=== PATIENT | female | born 1985 | race Two or more races ===

== ENCOUNTER 2025-04-03 09:06 | Inpatient (IN) | payer OTHER ==
[~2025-04-03] VITALS: Ht 167.6 cm; Wt 57.6 kg
[~2025-04-03 09:06] MED LIST: CLOB30CR27 TP; MUPI22OI7 TP
[2025-04-03] MEDS ORDERED: ONDANSETRON HCL/PF 4 MG/2 ML VIAL ONE (09:21)
[2025-04-03] MEDS ORDERED: ACETAMINOPHEN 650 MG/SUPP.RECT RC ONE (09:22)
[2025-04-03 09:30] LABS: RED BLOOD CELL COUNT(AUTO) 2.76 MIL/uL (4.0-5.2); RED CELL DISTRIBUTION WIDTH 16.0 % (11.5-15.0); WHITE BLOOD COUNT (AUTO) 15.0 K/uL (4.3-11.0)
[2025-04-03] MEDS: ONDANSETRON HCL/PF 4 MG/2 ML VIAL IV ONE (09:30)
[2025-04-03] MEDS: IV NS 0.9% 1,000 ML BAG IV ONE (09:30)
[2025-04-03] MEDS: ACETAMINOPHEN 650 MG/SUPP.RECT RC ONE (09:30)
[2025-04-03 09:32] LABS: PLATELET COUNT (AUTO) 121 K/uL (150-450)
[2025-04-03 09:38] LABS: CALCIUM, SERUM 8.6 mg/dL (8.5-10.1); CREATININE 0.7 mg/dL (0.6-1.3); SODIUM SERUM 139 mmol/L (136-145); UREA NITROGEN, BLOOD 14 mg/dL (7-18)
[2025-04-03] MEDS ORDERED: LEVO500T90 GT (09:38)
[2025-04-03 09:43] LABS: ASPARTATE AMINOTRANSFERASE 31 U/L (15-37); INR 1.31 (0.91-1.10); TOTAL PROTEIN, SERUM 9.1 g/dL (6.4-8.2)
[2025-04-03] MEDS: PIPERACILLIN /TAZOBACTAM 3.375 G in IV D5W 50 ML IV ONE (09:45)
[2025-04-03 09:48] LABS: LACTIC ACID 1.9 mmol/L (0.4-2.0)
[2025-04-03] MEDS: VANCOMYCIN 1 GM in IV D5W 250 ML IV ONE (10:00)
[2025-04-03 10:24] LABS: APPEARANCE,URINE CLEAR (CLEAR); BLOOD, URINE TRACE-INTA Ery/uL (NEGATIVE); LEUKOCYTE ESTERASE ,URINE NEGATIVE (NEGATIVE); NITRITE, URINE NEGATIVE (NEGATIVE); UGLUCOSE NEGATIVE (NEGATIVE)
[2025-04-03 10:25] LABS: PREGNANCY TEST URINE QUAL NEGATIVE (NEGATIVE)
[2025-04-03 10:31] LABS: ADD URINE CULTURE NO
[2025-04-03 13:01] LABS: ABG BASE EXCESS -4.4 mmol/L (-2.0-3.0); ABG OXYGEN SATURATION 99.3 % (94.0-98.0); ABG PCO2 28.0 mmHg (32.0-45.0); ABG PH 7.444 (7.350-7.450); ABG PO2 234.1 mmHg (83.0-108.0); ABG TOTAL HEMOGLOBIN 9.6 G/dL (12.0-16.0); FRACTIONATED INSPIRED OXYGEN 100.0 %; PEEP,BG 5 cm H2O; SET RATE, BG 22.0; SITE, ABG RIGHT RADIAL; VT, ABG 550 mL
[2025-04-03] MEDS ORDERED: ONDANSETRON HCL/PF 4 MG/2 ML VIAL IVP PRN (15:00)
[2025-04-03] MEDS ORDERED: DOSING PER PHARMACY-VANCOMYCIN IV XX PRN (15:00)
[2025-04-03] MEDS ORDERED: MORPHINE SULFATE INJ 4 MG/ML DISP.SYRIN IV PRN (15:00)
[2025-04-03] MEDS ORDERED: Z GUARD REMEDY 4 OZ OINT TP PRN (15:00)
[2025-04-03] MEDS: ACETYLCYSTEINE 20% SOLN 800 MG/4 ML VIAL NEB SCH (15:55)
[2025-04-03] MEDS: IPRATROPIUM NEB FS 0.5 MG/2.5 ML AMPUL.NEB NEB SCH (15:55)
[2025-04-03] MEDS: ALBUTEROL FS 2.5 MG/3 ML VIAL.NEB NEB SCH (15:55)
[2025-04-03] MEDS: IV LR 1000 ML 1,000 ML IV PRN (16:57)
[2025-04-03] MEDS: PIPERACILLIN /TAZOBACTAM 3.375 G in IV D5W 100 ML IV SCH (17:11)
[2025-04-03] MEDS: VANCOMYCIN 500 MG in IV D5W 100ml IV ONE (17:14)
[2025-04-03] MEDS ORDERED: PIPERACILLIN /TAZOBACTAM 3.375 G in IV D5W 50 ML IV SCH (18:00)
[2025-04-03 20:00] VITALS: BP 122/75; TEMP 100.2; O2SAT 95
[2025-04-03] MEDS: dexaMETHasone SOD PHOSPHATE 10 MG/ML VIAL IV ONE (20:35)
[2025-04-03] MEDS: IV LR 1000 ML 1,000 ML IV SCH (20:47)
[2025-04-03] MEDS: ACETAMINOPHEN 650 MG/SUPP.RECT RC PRN (21:00)
[2025-04-04] VITALS: BP 100/68; TEMP 97.7; O2SAT 98
[2025-04-04] MEDS: VANCOMYCIN HCL 1.25 GM in IV D5W 250 ML IV SCH (03:00)
[2025-04-04 04:00] VITALS: BP 106/70; TEMP 97.5; O2SAT 97
[2025-04-04 05:56] LABS: ABG BASE EXCESS -8.1 mmol/L (-2.0-3.0); ABG OXYGEN SATURATION 93.9 % (94.0-98.0); ABG PCO2 25.4 mmHg (32.0-45.0); ABG PH 7.401 (7.350-7.450); ABG PO2 77.1 mmHg (83.0-108.0); ABG TOTAL HEMOGLOBIN 9.3 G/dL (12.0-16.0); FRACTIONATED INSPIRED OXYGEN 40.0 %; PEEP,BG 5 cm H2O; SET RATE, BG 22.0; SITE, ABG RIGHT RADIAL; VT, ABG 550 mL
[2025-04-04 07:44] LABS: PLATELET COUNT (AUTO) 100 K/uL (150-450); RED BLOOD CELL COUNT(AUTO) 2.66 MIL/uL (4.0-5.2); RED CELL DISTRIBUTION WIDTH 16.8 % (11.5-15.0); WHITE BLOOD COUNT (AUTO) 6.9 K/uL (4.3-11.0)
[2025-04-04 08:00] VITALS: BP 109/81; TEMP 97.7; O2SAT 97
[2025-04-04 08:02] LABS: ASPARTATE AMINOTRANSFERASE 30.0 U/L (15-37); CALCIUM, SERUM 8.0 mg/dL (8.5-10.1); CREATININE 0.8 mg/dL (0.6-1.3); PHOSPHORUS 3.9 mg/dL (2.5-4.9); SODIUM SERUM 139.0 mmol/L (136-145); TOTAL PROTEIN, SERUM 8.2 g/dL (6.4-8.2); UREA NITROGEN, BLOOD 16.0 mg/dL (7-18)
[2025-04-04 08:05] LABS: IRON, SERUM 24.0 ug/dl (50-175)
[2025-04-04 08:12] LABS: LDL 57.0 mg/dL (0-99)
[2025-04-04] MEDS: PANTOPRAZOLE 40 MG VIAL IV SCH (08:19)
[2025-04-04] MEDS ORDERED: CHLO473M2 PO (09:38)
[2025-04-04] MEDS ORDERED: ACET325T53 GT (09:38)
[2025-04-04] MEDS ORDERED: FERR325T24 GT (09:38)
[2025-04-04] MEDS ORDERED: IPRA4AER INH (09:38)
[2025-04-04] MEDS ORDERED: PANT40SU2 GT (09:38)
[2025-04-04] MEDS ORDERED: MULT-594 GT (09:38)
[2025-04-04] MEDS ORDERED: TRAM50TA2 GT (09:38)
[2025-04-04] MEDS ORDERED: LACT10SO3 GT (09:38)
[2025-04-04] MEDS ORDERED: CHLO25CA10 GT (09:38)
[2025-04-04] MEDS ORDERED: NUT.237L30 GT (09:38)
[2025-04-04] MEDS ORDERED: FOLI0.4T6 GT (09:38)
[2025-04-04] MEDS ORDERED: SPIR50TA5 GT (09:38)
[2025-04-04] MEDS ORDERED: MAGN400O6 GT (09:38)
[2025-04-04] MEDS ORDERED: BISA10SU61 RC (09:38)
[2025-04-04] MEDS ORDERED: INSU100V27 SQ (09:38)
[2025-04-04] MEDS ORDERED: NA P133E RC (09:38)
[2025-04-04] MEDS ORDERED: ACET-73 GT (09:38)
[2025-04-04] MEDS ORDERED: AMIN30LI66 GT (09:38)
[2025-04-04] MEDS ORDERED: INSU100V7 SQ (09:38)
[2025-04-04] MEDS ORDERED: DOCU100C36 GT (09:38)
[2025-04-04] MEDS ORDERED: THIA100T68 GT (09:38)
[2025-04-04] MEDS ORDERED: IPRA4AER IH (09:38)
[2025-04-04] MEDS ORDERED: GLUC1KIT IM (09:38)
[2025-04-04] MEDS ORDERED: GLYC2TAB21 GT (09:38)
[2025-04-04] MEDS ORDERED: DEXTROSE 50%-WATER 50 ML DISP.SYRIN IV PRN (10:30)
[2025-04-04] MEDS ORDERED: CT SWABBABLE VALVE TRANS SET 1 EA INFUS.SET MC ONE (10:54)
[2025-04-04] MEDS ORDERED: IV NS 0.9% 0 ML IV ONE (10:54)
[2025-04-04] MEDS ORDERED: IOHEXOL-300 100 ML VIAL IV ONE (10:54)
[2025-04-04] MEDS: IV LR 500 ML IV ONE (10:56)
[2025-04-04] MEDS ORDERED: IV NS 0.9% 250 ML IV ONE (10:56)
[2025-04-04 12:00] VITALS: BP 128/77; TEMP 98.6; O2SAT 100
[2025-04-04] MEDS: BLOOD SUGAR DIAGNOSTIC 1 EACH STRIP IN SCH (12:11)
[2025-04-04 16:00] VITALS: BP 121/81; TEMP 97.3; O2SAT 100
[2025-04-04] MEDS: GLUCERNA 1.2 1,000 ML BOTTLE NG PRN (17:16)
[2025-04-04 20:00] VITALS: BP 113/78; TEMP 97.7; O2SAT 100
[2025-04-04] MEDS: VANCOMYCIN 1 GM in IV D5W 250ml IV SCH (20:31)
[2025-04-05] VITALS: BP 111/62; TEMP 97.5; O2SAT 100
[2025-04-05] MEDS: INSULIN REGULAR, HUMAN 100 UNIT/ML 3 ML VIAL SQ PRN (00:28)
[2025-04-05 04:00] VITALS: BP 106/61; TEMP 98.6; O2SAT 100
[2025-04-05 07:17] LABS: CALCIUM, SERUM 8.4 mg/dL (8.5-10.1); CREATININE 0.7 mg/dL (0.6-1.3); SODIUM SERUM 142.0 mmol/L (136-145); UREA NITROGEN, BLOOD 20.0 mg/dL (7-18)
[2025-04-05 08:00] VITALS: BP 113/93; TEMP 97.7; O2SAT 97
[2025-04-05] MEDS: THERAHONEY GEL 1.5 OZ TUBE TP SCH (09:41)
[2025-04-05 12:00] VITALS: BP 110/70; TEMP 98.2; O2SAT 100
[2025-04-05 13:40] LABS: PLATELET COUNT (AUTO) 120 K/uL (150-450); RED BLOOD CELL COUNT(AUTO) 2.18 MIL/uL (4.0-5.2); RED CELL DISTRIBUTION WIDTH 16.6 % (11.5-15.0); WHITE BLOOD COUNT (AUTO) 8.5 K/uL (4.3-11.0)
[2025-04-05 16:00] VITALS: BP 118/78; TEMP 98; O2SAT 100
[2025-04-05] MEDS: GLUCERNA 1.2 1,000 ML BOTTLE GT PRN (16:46)
[2025-04-05 20:00] VITALS: BP 128/78; TEMP 97.9; O2SAT 100
[2025-04-06] VITALS: BP 111/62; TEMP 98; O2SAT 100
[2025-04-06 06:00] VITALS: BP 118/65; TEMP 98; O2SAT 100
[2025-04-06 07:01] LABS: PLATELET COUNT (AUTO) 123 K/uL (150-450); RED BLOOD CELL COUNT(AUTO) 2.53 MIL/uL (4.0-5.2); RED CELL DISTRIBUTION WIDTH 16.0 % (11.5-15.0); WHITE BLOOD COUNT (AUTO) 9.4 K/uL (4.3-11.0)
[2025-04-06 07:07] LABS: CALCIUM, SERUM 8.1 mg/dL (8.5-10.1); CREATININE 0.6 mg/dL (0.6-1.3); PHOSPHORUS 3.6 mg/dL (2.5-4.9); SODIUM SERUM 143.0 mmol/L (136-145); UREA NITROGEN, BLOOD 16.0 mg/dL (7-18)
[2025-04-06 07:30] VITALS: BP 135/77; TEMP 98.4; O2SAT 98
[2025-04-06 08:00] VITALS: BP 135/77; TEMP 98.4; O2SAT 100
[2025-04-06] MEDS: PANTOPRAZOLE 40 MG/PACK PACK GT SCH (08:37)
[2025-04-06] MEDS: MAGNESIUM OXIDE 400 MG TABLET GT ONE (10:06)
[2025-04-06 12:00] VITALS: BP 129/72; TEMP 97.7; O2SAT 100; O2SAT 96
[2025-04-06] MEDS ORDERED: PIPE3.379 IV (12:18)
== END 2025-04-06 16:58 | DRG 720 ==
LOC: ER 09:23 → TELE-TD 14:14 → TELE1 04-04 13:16
PROVIDERS: ADMIT Nurse Practitioner Acute Care; ATTEND Nurse Practitioner Family
PROC: 5A1945Z Respiratory Ventilation, 24-96 Consecutive Hours (ICD-10-PCS; principal; 2025-04-03)
DX: A41.9 Sepsis, unspecified organism (principal); Z99.11 Dependence on respirator [ventilator] status; J96.20 Acute and chronic respiratory failure, unspecified whether with hypoxia or hypercapnia; T17.990A Other foreign object in respiratory tract, part unspecified in causing asphyxiation, initial encounter; J15.69 Pneumonia due to other Gram-negative bacteria; I62.03 Nontraumatic chronic subdural hemorrhage; K76.6 Portal hypertension; I21.A1 Myocardial infarction type 2; D69.6 Thrombocytopenia, unspecified; Z93.0 Tracheostomy status; J15.9 Unspecified bacterial pneumonia; K70.31 Alcoholic cirrhosis of liver with ascites; Z93.1 Gastrostomy status; R13.10 Dysphagia, unspecified; Z91.419 Personal history of unspecified adult abuse; W44.F9XA Other object of natural or organic material, entering into or through a natural orifice, initial encounter; Y92.129 Unspecified place in nursing home as the place of occurrence of the external cause; Y95 Nosocomial condition; N18.2 Chronic kidney disease, stage 2 (mild); E11.22 Type 2 diabetes mellitus with diabetic chronic kidney disease; E11.65 Type 2 diabetes mellitus with hyperglycemia; I12.9 Hypertensive chronic kidney disease with stage 1 through stage 4 chronic kidney disease, or unspecified chronic kidney disease; D63.8 Anemia in other chronic diseases classified elsewhere; D53.9 Nutritional anemia, unspecified; J98.11 Atelectasis; K51.90 Ulcerative colitis, unspecified, without complications; Z86.14 Personal history of Methicillin resistant Staphylococcus aureus infection; N28.1 Cyst of kidney, acquired; F10.11 Alcohol abuse, in remission; Z98.890 Other specified postprocedural states; Z87.820 Personal history of traumatic brain injury; G96.00 Cerebrospinal fluid leak, unspecified
CPT/HCPCS: 31720; 36415; 36600; 70450-TC; 70460-TC; 71045-TC; 71250-TC; 80048-TC; 80053-TC; 80061-TC; 80076-TC; 80202-TC; 81001; 82803-TC; 82962-TC; 83540-TC; 83605-TC; 83735-TC; 84100-TC; 84443-TC; 84484-TC; 84703-TC; 85025-TC; 85730-TC; 87040-TC; 87070-TC; 87081-TC; 87086-TC; 87205-TC; 93307-TC; 94002-TC; 94003-TC; 94760-TC; 94762-TC; 94799-TC; 99082-TC; A4223; G0378; J1100; J1815; J2405; J2470; J2543; J3373; J3490; J7030; J7040; J7050; J7060; J7120; Q9967

== ENCOUNTER 2025-04-11 08:50 | Inpatient (IN) | payer OTHER ==
[~2025-04-11] VITALS: Ht 170.2 cm; Wt 59.0 kg
[~2025-04-11 08:50] MED LIST changes: +ACET-73 GT; +ACET325T53 GT; +AMIN30LI66 GT; +BISA10SU61 RC; +CHLO25CA10 GT; +CHLO473M2 PO; +DOCU100C36 GT; +FERR325T24 GT; +FOLI0.4T6 GT; +GLUC1KIT IM; +GLYC2TAB21 GT; +INSU100V27 SQ; +INSU100V7 SQ; +IPRA4AER IH; +IPRA4AER INH; +LACT10SO3 GT; +MAGN400O6 GT; +MULT-594 GT; +NA P133E RC; +NUT.237L30 GT; +PANT40SU2 GT; +PIPE3.379 IV; +SPIR50TA5 GT; +THIA100T68 GT; +TRAM50TA2 GT
[2025-04-11] MEDS: IV NS 0.9% 1,000 ML BAG IV ONE (09:07)
[2025-04-11 09:09] LABS: PLATELET COUNT (AUTO) 159 K/uL (150-450); RED BLOOD CELL COUNT(AUTO) 3.26 MIL/uL (4.0-5.2); RED CELL DISTRIBUTION WIDTH 16.2 % (11.5-15.0); WHITE BLOOD COUNT (AUTO) 21.2 K/uL (4.3-11.0)
[2025-04-11] MEDS ORDERED: COLL30OI TP (09:18)
[2025-04-11] MEDS ORDERED: ASCO500T21 GT (09:18)
[2025-04-11] MEDS ORDERED: ZINC50TA69 GT (09:18)
[2025-04-11 09:20] LABS: INR 1.25 (0.91-1.10)
[2025-04-11 09:23] LABS: CALCIUM, SERUM 9.3 mg/dL (8.5-10.1); CREATININE 0.7 mg/dL (0.6-1.3); SODIUM SERUM 137 mmol/L (136-145); UREA NITROGEN, BLOOD 12 mg/dL (7-18)
[2025-04-11 09:27] LABS: LACTIC ACID 2.1 mmol/L (0.4-2.0)
[2025-04-11 09:31] LABS: ASPARTATE AMINOTRANSFERASE 39 U/L (15-37); TOTAL PROTEIN, SERUM 9.5 g/dL (6.4-8.2)
[2025-04-11] MEDS: PIPERACILLIN /TAZOBACTAM 3.375 G in IV D5W 50 ML IV ONE (09:38)
[2025-04-11] MEDS: VANCOMYCIN 1 GM in IV D5W 250 ML IV ONE (10:20)
[2025-04-11] MEDS ORDERED: IPRATROPIUM NEB FS 0.5 MG/2.5 ML AMPUL.NEB ONE (10:24)
[2025-04-11 11:18] LABS: ABG BASE EXCESS -5.9 mmol/L (-2.0-3.0); ABG OXYGEN SATURATION 98.9 % (94.0-98.0); ABG PCO2 28.0 mmHg (32.0-45.0); ABG PH 7.416 (7.350-7.450); ABG PO2 171.3 mmHg (83.0-108.0); ABG TOTAL HEMOGLOBIN 10.1 G/dL (12.0-16.0); FRACTIONATED INSPIRED OXYGEN 100.0 %; PEEP,BG 5 cm H2O; SET RATE, BG 22.0; SITE, ABG RIGHT RADIAL; VT, ABG 550 mL
[2025-04-11] MEDS ORDERED: MAGNESIUM HYDROXIDE 30 ML UDC PO PRN (11:30)
[2025-04-11] MEDS ORDERED: MAG HYDROX/AL HYDROX/SIMETH 30 ML UDC PO PRN (11:30)
[2025-04-11] MEDS: IPRATROPIUM NEB FS 0.5 MG/2.5 ML AMPUL.NEB NEB SCH (11:30)
[2025-04-11] MEDS ORDERED: ONDANSETRON HCL/PF 4 MG/2 ML VIAL IVP PRN (11:30)
[2025-04-11] MEDS ORDERED: DOSING PER PHARMACY-VANCOMYCIN IV XX PRN (11:30)
[2025-04-11] MEDS ORDERED: Z GUARD REMEDY 4 OZ OINT TP PRN (11:30)
[2025-04-11] MEDS ORDERED: DEXTROSE 50%-WATER 50 ML DISP.SYRIN IV PRN (13:00)
[2025-04-11] MEDS: PIPERACILLIN /TAZOBACTAM 3.375 G in IV D5W 50 ML IV SCH (14:30)
[2025-04-11 16:00] VITALS: BP 99/61; TEMP 98.7; O2SAT 100
[2025-04-11] MEDS: LACTULOSE 10 G/15 ML UDC (PYXIS) GT SCH (16:06)
[2025-04-11] MEDS: GLYCOPYRROLATE 1 MG TABLET GT SCH (16:07)
[2025-04-11] MEDS: CHLORHEXIDINE GLUCONATE 15 ML UDC MM SCH (16:07)
[2025-04-11] MEDS: VANCOMYCIN 1 GM in IV D5W 250ml IV SCH (17:29)
[2025-04-11] MEDS: FERROUS SULFATE (325 MG) 325 MG/TAB TABLET GT SCH (17:29)
[2025-04-11] MEDS: BLOOD SUGAR DIAGNOSTIC 1 EACH STRIP IN SCH (17:56)
[2025-04-11 20:00] VITALS: BP 106/63; TEMP 100.4; O2SAT 100
[2025-04-11] MEDS: ACETAMINOPHEN 325 MG TABLET PO PRN (20:16)
[2025-04-11] MEDS: NEPRO 1,000 ML BOTTLE GT PRN (20:49)
[2025-04-11 21:30] VITALS: TEMP 99.1
[2025-04-12] VITALS (8 sets, daily range): BP systolic 94–107; BP diastolic 52–69; TEMP 97.6–98.3; O2SAT 99–100
[2025-04-12 06:32] LABS: PLATELET COUNT (AUTO) 125 K/uL (150-450); RED BLOOD CELL COUNT(AUTO) 2.97 MIL/uL (4.0-5.2); RED CELL DISTRIBUTION WIDTH 16.8 % (11.5-15.0); WHITE BLOOD COUNT (AUTO) 9.6 K/uL (4.3-11.0)
[2025-04-12 06:43] LABS: SERUM AMMONIA 55.0 umol/L (11-32)
[2025-04-12 07:19] LABS: CREATININE 0.6 mg/dL (0.6-1.3); UREA NITROGEN, BLOOD 14.0 mg/dL (7-18)
[2025-04-12 07:20] LABS: CALCIUM, SERUM 8.4 mg/dL (8.5-10.1); PHOSPHORUS 3.9 mg/dL (2.5-4.9); SODIUM SERUM 138.0 mmol/L (136-145)
[2025-04-12] MEDS: ASCORBIC ACID 500 MG TABLET GT SCH (08:33)
[2025-04-12] MEDS: SPIRONOLACTONE 25 MG TABLET GT SCH (08:33)
[2025-04-12] MEDS: ZINC SULFATE 220 MG CAPSULE GT SCH (08:33)
[2025-04-12] MEDS: MULTIVITAMINS,THERAGRAN 1 UDTAB TABLET GT SCH (08:33)
[2025-04-12] MEDS: DOCUSATE SODIUM LIQ 100 MG/10 ML UDC GT SCH (08:34)
[2025-04-12] MEDS: PROSOURCE / PROSTAT (PYXIS) 30 ML UDC GT SCH (08:35)
[2025-04-12] MEDS: THERAHONEY GEL 1.5 OZ TUBE TP SCH (08:36)
[2025-04-12] MEDS ORDERED: DOCUSATE SODIUM 100 MG CAPSULE PO SCH (09:00)
[2025-04-12] MEDS ORDERED: DOSING PER PHARMACY-CEFEPIME IVPB XX PRN (12:00)
[2025-04-12] MEDS: CEFEPIME 2 GM in IV D5W 100 ML IV SCH (12:25)
[2025-04-12] MEDS: METRONIDAZOLE 500 MG TABLET GT SCH (12:28)
[2025-04-12 15:15] LABS: APPEARANCE,URINE CLEAR (CLEAR); BLOOD, URINE NEGATIVE Ery/uL (NEGATIVE); LEUKOCYTE ESTERASE ,URINE NEGATIVE (NEGATIVE); NITRITE, URINE NEGATIVE (NEGATIVE); UGLUCOSE NEGATIVE (NEGATIVE)
[2025-04-12 15:17] LABS: PREGNANCY TEST URINE QUAL NEGATIVE (NEGATIVE)
[2025-04-12] MEDS: ACETYLCYSTEINE 10% SOLN 400 MG/4 ML VIAL NEB SCH (15:30)
[2025-04-12] MEDS: VANCOMYCIN 1 GM in IV D5W 250ml IV SCH (23:50)
[2025-04-13] VITALS: BP 101/47; TEMP 98; O2SAT 100
[2025-04-13 04:00] VITALS: BP 113/61; TEMP 97.9; O2SAT 100
[2025-04-13 06:13] LABS: PLATELET COUNT (AUTO) 133 K/uL (150-450); RED BLOOD CELL COUNT(AUTO) 2.56 MIL/uL (4.0-5.2); RED CELL DISTRIBUTION WIDTH 15.7 % (11.5-15.0); WHITE BLOOD COUNT (AUTO) 6.4 K/uL (4.3-11.0)
[2025-04-13 06:22] LABS: CALCIUM, SERUM 9.0 mg/dL (8.5-10.1); CREATININE 0.7 mg/dL (0.6-1.3); PHOSPHORUS 4.0 mg/dL (2.5-4.9); SODIUM SERUM 139.0 mmol/L (136-145); UREA NITROGEN, BLOOD 16.0 mg/dL (7-18)
[2025-04-13 08:10] VITALS: BP 101/57; TEMP 97.5; O2SAT 100
[2025-04-13] MEDS: MAGNESIUM OXIDE 400 MG TABLET PO ONE (10:00)
[2025-04-13] MEDS: POTASSIUM CHLORIDE 20 MEQ POWDER PACKET NG SCH (10:00)
[2025-04-13 12:00] VITALS: BP 115/60; TEMP 97.5; O2SAT 100
[2025-04-13] MEDS: INSULIN REGULAR, HUMAN 100 UNIT/ML 3 ML VIAL SQ PRN (12:08)
[2025-04-13 16:38] VITALS: BP 108/66; TEMP 99.1; O2SAT 100
[2025-04-13 20:00] VITALS: BP 126/72; TEMP 98.2; O2SAT 100
[2025-04-13] MEDS: GLUCERNA 1.2 1,000 ML BOTTLE PEG PRN (20:52)
[2025-04-14] VITALS: BP 108/66; TEMP 97.9; O2SAT 100
[2025-04-14 04:00] VITALS: BP 105/61; TEMP 97.7; O2SAT 100
[2025-04-14 08:00] VITALS: BP 93/63; TEMP 98.6; O2SAT 100
[2025-04-14 08:14] LABS: PLATELET COUNT (AUTO) 140 K/uL (150-450); RED BLOOD CELL COUNT(AUTO) 2.92 MIL/uL (4.0-5.2); RED CELL DISTRIBUTION WIDTH 15.9 % (11.5-15.0); WHITE BLOOD COUNT (AUTO) 5.5 K/uL (4.3-11.0)
[2025-04-14 08:15] LABS: CALCIUM, SERUM 9.5 mg/dL (8.5-10.1); CREATININE 0.6 mg/dL (0.6-1.3); PHOSPHORUS 4.5 mg/dL (2.5-4.9); SODIUM SERUM 140.0 mmol/L (136-145); UREA NITROGEN, BLOOD 13.0 mg/dL (7-18)
[2025-04-14] MEDS: MAGNESIUM OXIDE 400 MG TABLET NG ONE (09:45)
[2025-04-14] MEDS ORDERED: METR500T GT (10:03)
[2025-04-14] MEDS ORDERED: CEFE2FRO IV (10:03)
[2025-04-14 12:00] VITALS: BP 91/55; TEMP 97.6; O2SAT 100
== END 2025-04-14 15:01 | DRG 720 ==
LOC: ER 08:56 → INTOOBSV 10:54 → OBSVTOIN 10:54 → TELE-TD 10:54 → TELE1 04-12 09:32
PROVIDERS: ATTEND Nurse Practitioner Family
PROC: 5A1945Z Respiratory Ventilation, 24-96 Consecutive Hours (ICD-10-PCS; principal; 2025-04-11)
PROC: 0JB70ZZ Excision of Back Subcutaneous Tissue and Fascia, Open Approach (ICD-10-PCS; 2025-04-14)
DX: A41.9 Sepsis, unspecified organism (principal); J95.851 Ventilator associated pneumonia; Z99.11 Dependence on respirator [ventilator] status; L89.153 Pressure ulcer of sacral region, stage 3; J15.69 Pneumonia due to other Gram-negative bacteria; Z93.0 Tracheostomy status; E87.20 Acidosis, unspecified; K74.60 Unspecified cirrhosis of liver; K76.6 Portal hypertension; R13.10 Dysphagia, unspecified; J96.10 Chronic respiratory failure, unspecified whether with hypoxia or hypercapnia; B96.89 Other specified bacterial agents as the cause of diseases classified elsewhere; I12.9 Hypertensive chronic kidney disease with stage 1 through stage 4 chronic kidney disease, or unspecified chronic kidney disease; K51.90 Ulcerative colitis, unspecified, without complications; Y84.8 Other medical procedures as the cause of abnormal reaction of the patient, or of later complication, without mention of misadventure at the time of the procedure; Y92.129 Unspecified place in nursing home as the place of occurrence of the external cause; E11.22 Type 2 diabetes mellitus with diabetic chronic kidney disease; Z20.822 Contact with and (suspected) exposure to COVID-19; N18.9 Chronic kidney disease, unspecified; Z87.820 Personal history of traumatic brain injury; Y95 Nosocomial condition; Z93.1 Gastrostomy status; D63.8 Anemia in other chronic diseases classified elsewhere; Z79.4 Long term (current) use of insulin; Z79.899 Other long term (current) drug therapy; J98.11 Atelectasis; F10.91 Alcohol use, unspecified, in remission; Z98.890 Other specified postprocedural states
CPT/HCPCS: 31720; 36415; 36600; 71045-TC; 71250-TC; 76604-TC; 80048-TC; 80076-TC; 80202-TC; 82140-TC; 82803-TC; 82962-TC; 83605-TC; 83735-TC; 84100-TC; 84703-TC; 85025-TC; 85730-TC; 87040-TC; 87081-TC; 87086-TC; 87186-TC; 94002-TC; 94003-TC; 94760-TC; 94762-TC; 94799-TC; A4223; G0378; J0692; J1815; J2543; J3373; J7030; J7040; J7050; J7060

== ENCOUNTER 2025-04-25 11:54 | Emergency (ER) | payer OTHER ==
[~2025-04-25] VITALS: Ht 167.6 cm; Wt 51.3 kg
[~2025-04-25 11:54] MED LIST changes: +ASCO500T21 GT; -BISA10SU61 RC; +CEFE2FRO IV; -CLOB30CR27 TP; +COLL30OI TP; -FOLI0.4T6 GT; -GLUC1KIT IM; +METR500T GT; -MUPI22OI7 TP; -PIPE3.379 IV; -THIA100T68 GT; +ZINC50TA69 GT
[2025-04-25 14:49] VITALS: TEMP 98.1
[2025-04-25 15:36] VITALS: BP 106/69; O2SAT 100
== END 2025-04-25 15:36 ==
LOC: ER 12:01
DX: S09.90XA Unspecified injury of head, initial encounter (principal); I13.10 Hypertensive heart and chronic kidney disease without heart failure, with stage 1 through stage 4 chronic kidney disease, or unspecified chronic kidney disease; J96.11 Chronic respiratory failure with hypoxia; N18.9 Chronic kidney disease, unspecified; Z98.890 Other specified postprocedural states; Z93.0 Tracheostomy status; Z79.899 Other long term (current) drug therapy; W06.XXXA Fall from bed, initial encounter; Y93.89 Activity, other specified; Y92.89 Other specified places as the place of occurrence of the external cause; Y99.8 Other external cause status
CPT/HCPCS: 70450-TC; 72125-TC; 87081-TC

== ENCOUNTER 2025-05-03 22:22 | Inpatient (IN) | payer OTHER ==
[~2025-05-03] VITALS: Ht 160 cm; Wt 48.5 kg
[2025-05-03] MEDS ORDERED: CT SWABBABLE VALVE TRANS SET 1 EA INFUS.SET MC ONE (22:58)
[2025-05-03] MEDS ORDERED: IOHEXOL-350 100 ML VIAL IV ONE (22:58)
[2025-05-03] MEDS ORDERED: IV NS 0.9% 250 ML IV ONE (22:59)
[2025-05-03] MEDS: IV LR 1000 ML 1,000 ML BAG IV ONE (23:05)
[2025-05-03 23:13] LABS: PLATELET COUNT (AUTO) 108 K/uL (150-450); RED BLOOD CELL COUNT(AUTO) 2.82 MIL/uL (4.0-5.2); RED CELL DISTRIBUTION WIDTH 15.9 % (11.5-15.0); WHITE BLOOD COUNT (AUTO) 10.8 K/uL (4.3-11.0)
[2025-05-03 23:21] LABS: CALCIUM, SERUM 10.6 mg/dL (8.5-10.1); CREATININE 0.6 mg/dL (0.6-1.3); SODIUM SERUM 141.0 mmol/L (136-145); UREA NITROGEN, BLOOD 21.0 mg/dL (7-18)
[2025-05-03 23:28] LABS: ASPARTATE AMINOTRANSFERASE 37.0 U/L (15-37); TOTAL PROTEIN, SERUM 8.3 g/dL (6.4-8.2)
[2025-05-03 23:36] LABS: INR 1.24 (0.91-1.10)
[2025-05-04] MEDS ORDERED: ONDANSETRON HCL/PF 4 MG/2 ML VIAL IVP PRN (02:00)
[2025-05-04] MEDS ORDERED: MAGNESIUM HYDROXIDE 30 ML UDC PO PRN (02:00)
[2025-05-04] MEDS ORDERED: DEXTROSE 50%-WATER 50 ML DISP.SYRIN IV PRN (02:00)
[2025-05-04] MEDS ORDERED: Z GUARD REMEDY 4 OZ OINT TP PRN (02:00)
[2025-05-04] MEDS ORDERED: MAG HYDROX/AL HYDROX/SIMETH 30 ML UDC PO PRN (02:00)
[2025-05-04] MEDS: IV NS 0.9% 1,000 ML IV PRN (03:19)
[2025-05-04 04:00] VITALS: BP 114/85; TEMP 97.3; O2SAT 100
[2025-05-04 06:47] LABS: PLATELET COUNT (AUTO) 97 K/uL (150-450); RED BLOOD CELL COUNT(AUTO) 2.75 MIL/uL (4.0-5.2); RED CELL DISTRIBUTION WIDTH 15.6 % (11.5-15.0); WHITE BLOOD COUNT (AUTO) 6.7 K/uL (4.3-11.0)
[2025-05-04 06:55] LABS: CALCIUM, SERUM 10.7 mg/dL (8.5-10.1); CREATININE 0.5 mg/dL (0.6-1.3); PHOSPHORUS 4.3 mg/dL (2.5-4.9); SODIUM SERUM 141.0 mmol/L (136-145); UREA NITROGEN, BLOOD 18.0 mg/dL (7-18)
[2025-05-04] MEDS: PANTOPRAZOLE 40 MG TABLET.DR PO SCH (07:30)
[2025-05-04] MEDS: BLOOD SUGAR DIAGNOSTIC 1 EACH STRIP IN SCH (07:41)
[2025-05-04] MEDS: INSULIN REGULAR, HUMAN 100 UNIT/ML 3 ML VIAL SQ PRN (07:42)
[2025-05-04 08:00] VITALS: BP 104/70; TEMP 98.1; O2SAT 100
[2025-05-04] MEDS: THERAHONEY GEL 1.5 OZ TUBE TP SCH (09:30)
[2025-05-04] MEDS: MAGNESIUM OXIDE 400 MG TABLET NG ONE (10:07)
[2025-05-04] MEDS ORDERED: SPIR25TA6 PO (10:32)
[2025-05-04] MEDS ORDERED: BISA10SU61 RC (10:32)
[2025-05-04] MEDS ORDERED: DOCU100T2 GT (10:32)
[2025-05-04] MEDS ORDERED: [UNRECOGNIZED DRUG - CODE] SQ (10:32)
[2025-05-04] MEDS ORDERED: IPRA4AER IH (10:32)
[2025-05-04] MEDS ORDERED: CHLO473M2 MM (10:32)
[2025-05-04] MEDS ORDERED: LORA-259 GT (10:32)
[2025-05-04] MEDS ORDERED: MAGN400T26 GT (10:32)
[2025-05-04 11:03] LABS: EOSINOPHILS % (MANUAL) 1 % (0-4); LYMPHOCYTES % (MANUAL) 9 % (16-48); MONOCYTES % (MANUAL) 6 % (0-11.0); NEUTROPHILS % (MANUAL) 84 (42-76); PLATELET ESTIMATE DECREASED
[2025-05-04 12:00] VITALS: BP 108/71; TEMP 98.4; O2SAT 100
[2025-05-04] MEDS: GLUCERNA 1.2 1,000 ML BOTTLE NG SCH (12:54)
[2025-05-04] MEDS ORDERED: BISACODYL SUPP (10 MG) 10 MG/SUPP.RECT SUPP.RECT RC PRN (14:00)
[2025-05-04] MEDS ORDERED: TRAMADOL HCL 50 MG TABLET GT PRN (14:00)
[2025-05-04] MEDS ORDERED: MAGNESIUM HYDROXIDE 30 ML UDC GT PRN (14:00)
[2025-05-04] MEDS ORDERED: ALBUTEROL FS 2.5 MG/3 ML VIAL.NEB NEB PRN (14:00)
[2025-05-04] MEDS ORDERED: IPRATROPIUM NEB FS 0.5 MG/2.5 ML AMPUL.NEB NEB PRN (14:00)
[2025-05-04] MEDS ORDERED: NA PHOS,M-B/NA PHOS,DI-BA 1 EA ENEMA RC PRN (14:00)
[2025-05-04 16:00] VITALS: BP 110/67; TEMP 98.8; O2SAT 100
[2025-05-04] MEDS: CHLORHEXIDINE GLUCONATE 15 ML UDC MM SCH (16:15)
[2025-05-04] MEDS: LACTULOSE 10 G/15 ML UDC (PYXIS) GT SCH (16:15)
[2025-05-04] MEDS: GLYCOPYRROLATE 1 MG TABLET GT SCH (16:16)
[2025-05-04] MEDS: ALBUTEROL FS 2.5 MG/3 ML VIAL.NEB NEB SCH (19:51)
[2025-05-04] MEDS: IPRATROPIUM NEB FS 0.5 MG/2.5 ML AMPUL.NEB NEB SCH (19:52)
[2025-05-04 20:00] VITALS: BP 112/68; TEMP 98.2; O2SAT 99
[2025-05-04] MEDS: LORAZEPAM 1 MG TABLET GT SCH (21:10)
[2025-05-04] MEDS: INSULIN GLARGINE, 100 UNIT/ML CARTRIDGE SQ SCH (21:48)
[2025-05-05] VITALS: BP 106/71; TEMP 97.7; O2SAT 98
[2025-05-05 04:00] VITALS: BP 113/72; TEMP 98; O2SAT 100
[2025-05-05 06:16] LABS: PLATELET COUNT (AUTO) 95 K/uL (150-450); RED BLOOD CELL COUNT(AUTO) 2.56 MIL/uL (4.0-5.2); RED CELL DISTRIBUTION WIDTH 15.8 % (11.5-15.0); WHITE BLOOD COUNT (AUTO) 5.7 K/uL (4.3-11.0)
[2025-05-05 06:28] LABS: CALCIUM, SERUM 10.2 mg/dL (8.5-10.1); CREATININE 0.5 mg/dL (0.6-1.3); PHOSPHORUS 4.4 mg/dL (2.5-4.9); SODIUM SERUM 144.0 mmol/L (136-145); UREA NITROGEN, BLOOD 16.0 mg/dL (7-18)
[2025-05-05 07:29] LABS: EOSINOPHILS % (MANUAL) 4 % (0-4); LYMPHOCYTES % (MANUAL) 17 % (16-48); MONOCYTES % (MANUAL) 11 % (0-11.0); NEUTROPHILS % (MANUAL) 68 (42-76); PLATELET ESTIMATE DECREASED
[2025-05-05 08:00] VITALS: BP_SYST 107; BP_SYST 129; BP_DIAS 56; BP_DIAS 69; TEMP 98.2; O2SAT 99
[2025-05-05] MEDS: PROSOURCE / PROSTAT (PYXIS) 30 ML UDC GT SCH (09:00)
[2025-05-05] MEDS: SPIRONOLACTONE 25 MG TABLET GT SCH (09:00)
[2025-05-05] MEDS: PANTOPRAZOLE 40 MG/PACK PACK GT SCH (09:00)
[2025-05-05] MEDS ORDERED: PANTOPRAZOLE 40 MG/PACK PACK GT SCH (09:00)
[2025-05-05] MEDS: DOCUSATE SODIUM LIQ 100 MG/10 ML UDC GT SCH (09:00)
[2025-05-05] MEDS: ZINC SULFATE 220 MG CAPSULE GT SCH (09:00)
[2025-05-05] MEDS: MAGNESIUM OXIDE 400 MG TABLET GT SCH (09:00)
[2025-05-05] MEDS: ASCORBIC ACID 500 MG TABLET GT SCH (09:00)
[2025-05-05] MEDS ORDERED: COLLAGENASE 30 GM TUBE TP SCH (09:00)
[2025-05-05] MEDS: FERROUS SULFATE (325 MG) 325 MG/TAB TABLET GT SCH (09:00)
[2025-05-05] MEDS: MULTIVITAMINS,THERAGRAN 1 UDTAB TABLET GT SCH (09:00)
[2025-05-05] MEDS: MAGNESIUM OXIDE 400 MG TABLET PO ONE (11:00)
[2025-05-05 12:00] VITALS: BP_SYST 125; BP_SYST 129; BP_DIAS 56; BP_DIAS 82; TEMP 98.1; TEMP 98.2; O2SAT 99
[2025-05-05] MEDS: GLUCERNA 1.2 1,000 ML BOTTLE PEG SCH (15:52)
[2025-05-05 16:00] VITALS: BP 104/67; TEMP 98.8; O2SAT 99
[2025-05-05 20:00] VITALS: BP 110/63; TEMP 98.1; O2SAT 100
[2025-05-06] VITALS: BP 114/64; TEMP 99; O2SAT 100
[2025-05-06 04:00] VITALS: BP 117/67; TEMP 98.4; O2SAT 100
[2025-05-06 06:19] LABS: CALCIUM, SERUM 9.8 mg/dL (8.5-10.1); CREATININE 0.5 mg/dL (0.6-1.3); SODIUM SERUM 142.0 mmol/L (136-145); UREA NITROGEN, BLOOD 12.0 mg/dL (7-18)
[2025-05-06 06:25] LABS: PLATELET COUNT (AUTO) 93 K/uL (150-450); RED BLOOD CELL COUNT(AUTO) 2.42 MIL/uL (4.0-5.2); RED CELL DISTRIBUTION WIDTH 15.7 % (11.5-15.0); WHITE BLOOD COUNT (AUTO) 6.0 K/uL (4.3-11.0)
[2025-05-06 08:00] VITALS: BP 116/71; TEMP 98.1; O2SAT 96
[2025-05-06] MEDS: Magnesium 1GM/D5W 100ML PREMIX PIGGYBACK IV ONE (09:21)
[2025-05-06 09:34] LABS: EOSINOPHILS % (MANUAL) 1 % (0-4); LYMPHOCYTES % (MANUAL) 17 % (16-48); MONOCYTES % (MANUAL) 12 % (0-11.0); NEUTROPHILS % (MANUAL) 70 (42-76)
[2025-05-06 09:35] LABS: PLATELET ESTIMATE DECREASED
[2025-05-06 12:00] VITALS: BP 128/83; TEMP 97.9; O2SAT 100
[2025-05-06] MEDS: ACETAMINOPHEN 325 MG TABLET PO PRN (14:25)
[2025-05-06 16:00] VITALS: BP 123/73; TEMP 99; O2SAT 100
== END 2025-05-06 19:00 | DRG 143 ==
LOC: ER 22:23 → TELE1 05-04 02:08
PROVIDERS: ADMIT Nurse Practitioner Family; ATTEND Nurse Practitioner Acute Care
PROC: 5A1945Z Respiratory Ventilation, 24-96 Consecutive Hours (ICD-10-PCS; principal; 2025-05-04)
DX: J95.01 Hemorrhage from tracheostomy stoma (principal); Z99.11 Dependence on respirator [ventilator] status; J96.21 Acute and chronic respiratory failure with hypoxia; E44.1 Mild protein-calorie malnutrition; R13.10 Dysphagia, unspecified; I12.9 Hypertensive chronic kidney disease with stage 1 through stage 4 chronic kidney disease, or unspecified chronic kidney disease; N18.9 Chronic kidney disease, unspecified; F10.11 Alcohol abuse, in remission; E11.22 Type 2 diabetes mellitus with diabetic chronic kidney disease; D63.8 Anemia in other chronic diseases classified elsewhere; K70.30 Alcoholic cirrhosis of liver without ascites; D68.59 Other primary thrombophilia; Y84.8 Other medical procedures as the cause of abnormal reaction of the patient, or of later complication, without mention of misadventure at the time of the procedure; Y92.9 Unspecified place or not applicable; Z98.890 Other specified postprocedural states; E86.0 Dehydration; E80.6 Other disorders of bilirubin metabolism; E88.09 Other disorders of plasma-protein metabolism, not elsewhere classified; Z74.09 Other reduced mobility; Z79.899 Other long term (current) drug therapy; Z87.820 Personal history of traumatic brain injury; E83.42 Hypomagnesemia; L53.9 Erythematous condition, unspecified; Z79.4 Long term (current) use of insulin; K51.90 Ulcerative colitis, unspecified, without complications
CPT/HCPCS: 31720; 36415; 71045-TC; 80048-TC; 80076-TC; 82962-TC; 83735-TC; 84100-TC; 85025-TC; 85027-TC; 85730-TC; 87081-TC; 94002-TC; 94003-TC; 94760-TC; 94762-TC; 94799-TC; 99082-TC; A4623; A6213; G0378; J1815; J3475; J7030; J7050; J7120; Q9967